=== PATIENT | male | born 1955 | race Caucasian/White ===

== ENCOUNTER 2024-02-08 11:54 | Observation (INO) ==
[2024-02-08 12:16] LABS: ABS Eosinophils 0.2 10^3/uL (0.0-0.5); ABS Lymphocytes 1.8 10^3/uL (1.0-4.8); ABS Monocytes 0.7 10^3/uL (0.0-1.1); ABS Neutrophils 4.2 10^3/uL (1.5-7.6); Hematocrit 42.1 % (38-53); Hemoglobin 14.1 g/dL (13.2-16.3); Lymphocyte % 26.7 %; Mean Corpuscular Hemoglobin 31.8 pg (27-33); Mean Corpuscular Hgb Conc 33.6 g/dL (31-36); Mean Corpuscular Volume 94.7 fL (80-97); Mean Platelet Volume 8.2 fL (7.5-11.2); Platelet Count 228 10^3/uL (150-450); Red Blood Count 4.45 10^6/uL (4.06-5.63); Red Cell Distribution Width 14.2 % (12-17); White Blood Count 6.9 10^3/uL (3.6-10.2)
[2024-02-08 12:26] LABS: Activated Partial Thrombo Time 32.5 seconds (26.0-38.0); INR 0.94 (0.83-1.13)
[2024-02-08] MEDS: Aspirin EC 325 mg TAB.EC PO ONE (12:58)
[2024-02-08 13:01] LABS: Albumin 4.2 g/dL (3.2-5.2); Albumin/Globulin Ratio 1.4 (1-3); Calcium 9.7 mg/dL (8.6-10.3); Creatinine, Serum 0.76 mg/dL (0.67-1.17); Direct Bilirubin 0.1 mg/dL (0.03-0.18); Globulin 3.1 g/dL (2-4); HDL Cholesterol 60.6 mg/dL; Indirect Bilirubin 0.2 mg/dL (0.3-1.0); Potassium 3.9 mmol/L (3.5-5.0); Total Bilirubin 0.3 mg/dL (0.2-1.0); Total Protein 7.3 g/dL (6.4-8.9); eGFR CKD-EPI 97.9 (>60)
[2024-02-08 15:05] LABS: Urine Appearance Clear; Urine Bilirubin Negative (Negative); Urine Blood Negative (Negative); Urine Color Light-Yellow; Urine Glucose 1+ (>=70 mg/dL) (Negative); Urine Ketones Negative (Negative); Urine Nitrite Negative (Negative); Urine Protein Trace (Negative); Urine Specific Gravity >1.050 (1.002-1.030); Urine Urobilinogen Negative (Negative); Urine pH 5.5 (5.0-8.0)
[2024-02-08] MEDS: Enoxaparin 40 MG/0.4 ML SYR SUBCUT SCH (16:00)
[2024-02-08] MEDS: Sulfur Hexaflouride MICROSPHR 25 MG VIAL IV ONE (16:53)
[2024-02-08 17:00] VITALS: BP 190/79
== END 2024-02-08 17:03 | disposition left against medical advice (07) ==
LOC: EDHOLD 11:54 → ED 11:54 → SUATTDRO 13:50 → EDHOLD 16:59
PROVIDERS: ADMIT Student in an Organized Health Care Education/Training Program; ATTEND Internal Medicine

== ENCOUNTER 2024-03-30 10:18 | Observation (INO) ==
[2024-03-30 10:50] LABS: ABS Basophils 0.1 10^3/uL (0.0-0.1); ABS Eosinophils 0.1 10^3/uL (0.0-0.5); ABS Lymphocytes 2.4 10^3/uL (1.0-4.8); ABS Monocytes 0.7 10^3/uL (0.0-1.1); ABS Neutrophils 4.2 10^3/uL (1.5-7.6); Eosinophil % 1.7 %; Hematocrit 28.6 % (38-53); Hemoglobin 9.8 g/dL (13.2-16.3); Lymphocyte % 31.9 %; Mean Corpuscular Hemoglobin 32.8 pg (27-33); Mean Corpuscular Hgb Conc 34.1 g/dL (31-36); Mean Corpuscular Volume 96.3 fL (80-97); Mean Platelet Volume 8.4 fL (7.5-11.2); Platelet Count 246 10^3/uL (150-450); Red Blood Count 2.97 10^6/uL (4.06-5.63); Red Cell Distribution Width 13.5 % (12-17); White Blood Count 7.4 10^3/uL (3.6-10.2)
[2024-03-30 11:12] LABS: Activated Partial Thrombo Time 28.7 seconds (26.0-38.0); INR 0.99 (0.83-1.13)
[2024-03-30 11:24] LABS: Albumin 3.9 g/dL (3.2-5.2); Albumin/Globulin Ratio 1.6 (1-3); Calcium 8.8 mg/dL (8.6-10.3); Creatinine, Serum 0.74 mg/dL (0.67-1.17); Direct Bilirubin 0.1 mg/dL (0.03-0.18); Globulin 2.5 g/dL (2-4); HDL Cholesterol 36.5 mg/dL; Indirect Bilirubin 0.2 mg/dL (0.3-1.0); Potassium 4.1 mmol/L (3.5-5.0); Total Bilirubin 0.3 mg/dL (0.2-1.0); Total Protein 6.4 g/dL (6.4-8.9); eGFR CKD-EPI 98.1 (>60)
[2024-03-30] MEDS ORDERED: Sulfur Hexaflouride MICROSPHR 25 MG VIAL IV ONE (11:41)
[2024-03-30] MEDS: Enoxaparin 40 MG/0.4 ML SYR SUBCUT SCH (13:06)
[2024-03-30] MEDS: Lactated Ringers 1000 ml BAG 1,000 ML IV ONE (13:07)
[2024-03-31 06:15] VITALS: BP 105/68
[2024-04-02] MEDS: Iodixanol 320 (CONTRAST) 100 ML SDV IV ONE (05:43)
== END 2024-03-31 08:20 | disposition home or self-care (01) ==
LOC: EDHOLD 10:18 → ED 10:18 → MEDTELE 15:19
PROVIDERS: ADMIT Student in an Organized Health Care Education/Training Program; ATTEND Student in an Organized Health Care Education/Training Program

== ENCOUNTER 2024-03-31 08:28 | Observation (INO) ==
[2024-03-31 08:52] LABS: ABS Eosinophils 0.1 10^3/uL (0.0-0.5); ABS Lymphocytes 2.3 10^3/uL (1.0-4.8); ABS Monocytes 0.3 10^3/uL (0.0-1.1); ABS Neutrophils 4.4 10^3/uL (1.5-7.6); Hematocrit 21.2 % (38-53); Hemoglobin 7.4 g/dL (13.2-16.3); Lymphocyte % 32.2 %; Mean Corpuscular Hemoglobin 33.6 pg (27-33); Mean Corpuscular Hgb Conc 34.9 g/dL (31-36); Mean Corpuscular Volume 96.2 fL (80-97); Mean Platelet Volume 8.2 fL (7.5-11.2); Platelet Count 214 10^3/uL (150-450); Red Cell Distribution Width 13.3 % (12-17); White Blood Count 7.1 10^3/uL (3.6-10.2)
[2024-03-31 09:40] LABS: Albumin 3.3 g/dL (3.2-5.2); Albumin/Globulin Ratio 1.6 (1-3); Calcium 8.2 mg/dL (8.6-10.3); Creatinine, Serum 0.74 mg/dL (0.67-1.17); Globulin 2.1 g/dL (2-4); Potassium 4.5 mmol/L (3.5-5.0); Total Bilirubin 0.3 mg/dL (0.2-1.0); Total Protein 5.4 g/dL (6.4-8.9); eGFR CKD-EPI 98.1 (>60)
[2024-03-31 09:51] LABS: INR 1.22 (0.85-1.14)
[2024-03-31 10:19] LABS: High Sensitivity Troponin 1 Hr 10 pg/mL (<20)
[2024-03-31 12:52] LABS: Hematocrit 20.8 % (38-53); Hemoglobin 7.1 g/dL (13.2-16.3)
[2024-03-31] MEDS: Pantoprazole 80 mg in NS BAG 80 MG/250 ML BAG IV SCH (14:14)
[2024-03-31] MEDS: Pantoprazole VIAL 40 MG VIAL IV ONE (14:15)
[2024-03-31] MEDS ORDERED: Ondansetron 4 mg VIAL 2 MG/ML 2 ml VIAL IV PRN (14:29)
[2024-03-31 15:19] LABS: Ferritin 41.8 ng/mL (24-336)
[2024-03-31] MEDS: Iohexol 350 (CONTRAST) 500 ML MDV IV ONE (15:44)
[2024-03-31] MEDS: PEG 3000 GI LAVAGE 1 GALLON PO ONE (17:30)
[2024-04-01] MEDS: Pantoprazole 80 mg in NS BAG 80 MG/250 ML BAG IV SCH (00:15)
[2024-04-01 05:40] LABS: ABS Eosinophils 0.1 10^3/uL (0.0-0.5); ABS Lymphocytes 2.2 10^3/uL (1.0-4.8); ABS Monocytes 0.6 10^3/uL (0.0-1.1); ABS Neutrophils 3.9 10^3/uL (1.5-7.6); Eosinophil % 1.5 %; Hematocrit 21.9 % (38-53); Hemoglobin 7.7 g/dL (13.2-16.3); Lymphocyte % 32.2 %; Mean Corpuscular Hemoglobin 32.3 pg (27-33); Mean Corpuscular Volume 92.1 fL (80-97); Mean Platelet Volume 8.3 fL (7.5-11.2); Platelet Count 173 10^3/uL (150-450); Red Blood Count 2.37 10^6/uL (4.06-5.63); Red Cell Distribution Width 14.5 % (12-17); White Blood Count 6.8 10^3/uL (3.6-10.2)
[2024-04-01 06:03] LABS: Calcium 7.7 mg/dL (8.6-10.3); Creatinine, Serum 0.62 mg/dL (0.67-1.17); Potassium 3.4 mmol/L (3.5-5.0); eGFR CKD-EPI 103.5 (>60)
[2024-04-01 08:30] LABS: Magnesium 1.8 mg/dL (1.9-2.7)
[2024-04-01] MEDS: Potassium Chlor 20 meq TAB.ER PO ONE (09:15)
[2024-04-01] MEDS ORDERED: Lidocaine 2% PF 5 ML VIAL ONE (12:57)
[2024-04-01 15:08] VITALS: BP 141/60
[2024-04-01] MEDS: Magnesium Sulfate IV 1GM/100ML 1 GM/100 ML BAG IV ONE (15:46)
== END 2024-04-01 15:57 | disposition home or self-care (01) ==
LOC: ED 08:28 → EDHOLD 08:28 → SUATTDRO 14:29 → MEDTELE 17:08
PROVIDERS: ADMIT Student in an Organized Health Care Education/Training Program; ATTEND Internal Medicine
PROC: O.GIEGD (2024-04-01 13:35)